=== PATIENT | male | born 1955 | race Caucasian/White ===

== ENCOUNTER 2020-07-15 22:44 | Emergency (ER) | payer OTHER ==
[~2020-07-15] VITALS: Ht 177.8 cm; Wt 93.0 kg
--- NOTE | 2020-07-15 22:44 | NUR ---
Pt in hallway bed 3.
[2020-07-15 22:48] VITALS: BP_SYST 108
--- NOTE | 2020-07-15 22:48 | NUR ---
BIB [facility] from home after syncopal episode. Pt was sitting on couch and stood up and went down onto the couch. called 911. States he got dizzy and sweaty. Denies chest pain, denies SOB, denies n/v, denies dizziness. Skin dry, Sinus Rhythm on monitor. Awaiting MSE on EMS [facility].
--- NOTE | 2020-07-15 23:20 | NUR ---
ER Dr. Tovar examining patient on EMS [facility]
--- NOTE | 2020-07-15 23:28 | NUR ---
X ray at bedside.
[2020-07-16 00:12] LABS: BASOPHILS # (AUTO) 0.1 K/uL (0.0-0.2); BASOPHILS % (AUTO) 0.5 % (0.0-2.0); EOSINOPHILS # (AUTO) 0.3 K/uL (0.0-0.4); EOSINOPHILS % (AUTO) 2.7 % (0.0-4.0); HEMATOCRIT 47.8 % (36-54); LYMPHOCYTES # (AUTO) 1.9 K/uL (1.0-5.5); LYMPHOCYTES % (AUTO) 16.8 % (20.5-51.5); MEAN CORPUSCULAR HEMOGLOBIN 29 pg (27-31); MEAN CORPUSCULAR HGB CONC 34 % (32-36); MEAN CORPUSCULAR VOLUME 86 fL (79.0-98.0); MONOCYTES # (AUTO) 0.7 K/uL (0.0-1.0); MONOCYTES % (AUTO) 6.4 % (1.7-9.3); NEUTROPHILS # (AUTO) 8.4 K/uL (1.8-7.7); NEUTROPHILS % (AUTO) 73.6 % (40.0-70.0); PLATELET COUNT (AUTO) 273 K/uL (130-430); RED BLOOD CELL COUNT(AUTO) 5.55 MIL/uL (4.2-6.2); RED CELL DISTRIBUTION WIDTH 13.6 % (9.0-15.0); WHITE BLOOD COUNT (AUTO) 11.5 K/uL (4.8-10.8)
[2020-07-16 00:23] LABS: CALCIUM 9.3 mg/dL (8.4-11.0); CREATININE 0.99 mg/dL (0.55-1.30)
[2020-07-16 00:29] LABS: ALBUMIN 3.9 g/dL (3.4-4.8); TOTAL BILIRUBIN 0.3 mg/dL (0.0-1.0)
[2020-07-16 02:19] VITALS: BP_SYST 117
--- NOTE | 2020-07-16 02:19 | NUR ---
Patient given written and verbal discharge instructions and verbalizes understanding. ER MD discussed with patient the results and treatment provided. Patient in stable condition. ID arm band Patient educated on pain management and to follow up with primary care physician. Opportunity for questions provided and answered.
== END 2020-07-16 02:19 | disposition home or self-care (01) ==
LOC: SED 22:44
DX: R55 Syncope and collapse (principal); I10 Essential (primary) hypertension
CPT/HCPCS: 36415; 71045; 80053; 82550-TC; 83605; 83880; 84484; 85025; 93005; 99285